=== PATIENT | female | born 1940 | race Caucasian/White ===

== ENCOUNTER 2017-11-29 12:11 | Observation (INO) | payer OTHER ==
--- NOTE | 2017-11-29 13:03 | PDOC ---
History of Present Illness - General Chief Complaint: Injury Stated Complaint: Altered Mental Status Time Seen by Provider: 11/29/17 12:49 - History of Present Illness Initial Comments: 11/29/17 13:06 History elicited from HCP Sister Christina Vilchis. Pt is demented. 77 yo F coming from [facility] w/ H cholecystectomy, R hip surgery (2007), and dementia, p/w altered mental status, polyuria, x1wk along w/ 2 unwitnessed falls. Staff noticed that 1 week ago after pt got flu shot she began having change in MS manifesting w/ polyuria, wetting her bed, unsteady on feet ( baseline is shuffling gait but does not need a cane/walker), stripping her clothing off, mild abd distension. Pt fell twice in the past 4 dys, once last night and once over the weekend. Fall was unwitnessed but pt did not seem to have LOC or any neuro deficits or no obvious bleeding or frax. Pt has not verbalized any specific complaints other than some mild R hip pain. Denies fever, sob, cp, n/v/d, blood in urine, blood in stools, sick contacts. Pt has been maintaining good PO FH: dad had dementia SH: denies smoke etoh drug. Past History - Past Medical History Allergies/Adverse Reactions: Allergies Allergy/AdvReac Type Severity Reaction Status Date / Time No Known Allergies Allergy Verified 11/29/17 15:55 Home Medications: Ambulatory Orders Calcium Carbonate/Vitamin D3 [Calcium 500-Vit D3 200 Tablet] 1 tab PO DAILY 11/08 Docusate Sodium [Colace] 200 mg PO HS 11/29/17 Donepezil HCl [Aricept] 10 mg PO HS 11/29/17 Melatonin 6 mg PO HS 11/29/17 Memantine HCl [Namenda -] 10 mg PO BID 11/29/17 Metoprolol Succinate [Toprol Xl] 25 mg PO DAILY 11/29/17 - Suicide/Smoking/Psychosocial Hx Smoking History: Never smoked Information on smoking cessation initiated: No Hx Alcohol Use: No Drug/Substance Use Hx: No Review of Systems - Review of Systems Constitutional: Yes: See HPI HEENTM: Yes: See HPI Respiratory: Yes: See HPI Cardiac (ROS): Yes: See HPI ABD/GI: Yes: See HPI : Yes: See HPI Musculoskeletal: Yes: See HPI Integumentary: Yes: See HPI Neurological: Yes: See HPI Endocrine: Yes: See HPI Hematologic/Lymphatic: Yes: See HPI *Physical Exam - Vital Signs Last Vital Signs Temp Pulse Resp BP Pulse Ox 99.7 F H 98 H 20 138/80 99 11/29/17 12:33 11/29/17 12:33 11/29/17 12:33 11/29/17 12:33 11/29/17 12:33 - Physical Exam Comments: 11/29/17 13:17 General: Well-nourished, NAD. Dementia HEENT: NCAT, MMM Neck: Supple, no lymphadenopathy Respiratory: CTAB cardio: RRR S1 S2 no m/r/g Abdomen:+ BS Soft, mild distension, TTP suprapubic Extremities: radial 2+ b/l. Warm, dry, no cyanosis, clubbing. no leg edema, swelling or calf tenderness. RLE able to raise leg, mild pain on medial thigh w / flexion of knee joint. LLE unable to flex knee 2/2 pain in the extremity/hip ( unclear location), no erythema, nontender at exterior hip/iliac crest Skin: intact. no rashes Neuro: Alert and oriented x2, nonfocal exam, grossly intact Psych: Normal mood and affect 11/29/17 13:26 ED Treatment Course - LABORATORY CBC & Chemistry Diagram: 11/29/17 14:17 11/29/17 14:17 Medical Decision Making - Medical Decision Making 11/29/17 13:27 History elicited from HCP Sister Chritsina Vilchis. Pt is demented. 77 yo F coming from [facility] w/ PMH cholecystectomy, R hip surgery (2007), and dementia, p/w altered mental status, polyuria, x1wk along w/ 2 unwitnessed falls. tachycardia, rectal temp 99.7, concern for sepsis in setting of AMS and elderly Ddx: sepsis 2/2 UTI, acue vs chronic SDH, hip frax Will initiate sepsis w/u -CBC, CMP, troponin, lactic, UA, Ucx, Bcx, VBG, coags, EKG -CXR -head CT r/o bleed -b/l hip XR look for frax 11/29/17 18:09 no leukocytosis elevated bili and alk phosph CT neg for bleed CXR nl UA neg EKG unremarkable. Hyperkalemia w/o sig EKG changes no obvious hip frax on x-rays Pt may need CT of hip Patient unable to transfer ambulate multiple falls at [facility] unsafe discharge at this time Will admit to inpatient for AMS w/ recurrent falls and unable to ambulate. 11/29/17 19:[address] Nguyen Will admit to inpatient for AMS w/ recurrent falls and unable to ambulate. CAT scan of bilateral hips has been ordered to rule out nondisplaced fracture *DC/Admit/Observation/Transfer Diagnosis at time of Disposition: Encephalopathy, Unable to ambulate Fall Qualifiers: Encounter type: subsequent encounter Qualified Code(s): W19.XXXD - Unspecified fall, subsequent encounter - Referrals - Patient Instructions - Post Discharge Activity
--- NOTE | 2017-11-29 13:32 | PDOC ---
Attending Attestation - HPI HPI: 11/29/17 13:40 The patient is a 77 year old female, with a significant past medical history of cholecystectomy, R hip surgery (2007), and dementia, who presents to the emergency department with sisters at bedside for evaluation of increased confusion over one week with two unwitnessed falls. The sisters at bedside report the patient walks unassisted at baseline, however, after a mechanical fall on Tuesday has been unable to walk steadily unassisted since. The sisters also report a fall last night, but denies LOC. The patient reports mild pain to her left hip and low back, however, is slightly confused. The sisters at bedside states the patient has been removing her clothes periodically in the day and has been wetting her bed frequently within the past week. The patient denies any complaints of pain. The patient denies chest pain, shortness of breath, headache and dizziness. The patient denies fever, chills, nausea, vomit, diarrhea and constipation. The patient denies dysuria, frequency, urgency and hematuria. Allergies: NKDA Past surgical history: right hip (2007) - Physicial Exam PE: 11/29/17 13:40 Vitals: Triage vital signs reviewed General Appearance: No acute distress, well nourished, well developed Head: Atraumatic Eyes: Pupils equal reactive round, extraocular movement intact Neck: Supple; No nuchal rigidity Chest Wall: Nontender Cardiac: Regular rate and rhythm, no murmurs, no rubs, no gallops Lungs: Clear to auscultation bilateral, good air movement bilaterally Abdomen: Soft, nondistended, normal bowel sounds, nontender to palpation Extremities: (+)Decreased ROM of the left lower extremity secondary to pain. + Left hip tenderness on palpation. Left lower extremity is slightly more edematous when compared to the RLE. Full range of motion to remainder of extremities, no cyanosis, clubbing. Musculoskeletal: (+) tenderness on palpation of the lumbar spine. Skin: Warm and dry, no rashes or lesions, no rash, no petechiae Neuro: Cranial Nerves 2-12 grossly intact, Strength intact to all extremities, Sensation intact to all extremities, Psych: Normal mood, normal affect - Medical Decision Making 11/29/17 13:41 Documentation prepared by Johanna Silva, acting as medical pathology teacher for Willis Schilling MD <Johanna Silva - Last Filed: 11/29/17 13:40> - Resident Resident Name: Gagandeep Keyes - ED Attending Attestation I have performed the following: I have examined & evaluated the patient, The case was reviewed & discussed with the resident, I agree w/resident's findings & plan, Exceptions are as noted - Medical Decision Making No acute fracture dislocations on patient's hip x-rays Patient unable to transfer ambulate [facility] unsafe discharge at this time We'll observe on medicine service CAT scan of bilateral hips has been ordered to rule out nondisplaced fracture We'll admit to medicine for further management. <Willis Schilling - Last Filed: 11/29/17 19:00>
[2017-11-29 14:35] LABS: VENOUS PC02 44.5 mmHg (38-52); VENOUS PH 7.41 (7.32-7.42); VENOUS PO2 30.1 mmHg (28-48)
[2017-11-29 14:41] LABS: BASO % 0.9 % (0-2.0); EOS % 1.8 % (0-4.5); HEMATOCRIT 37.5 % (32.4-45.2); HEMOGLOBIN 12.8 GM/dL (10.7-15.3); LYMPH % 13.6 % (8-40); MCH 35.9 pg (25.7-33.7); MEAN CELL VOLUME 105.5 fl (80-96); MONO % 8.9 % (3.8-10.2); NEUT % 74.8 % (42.8-82.8); PLATELET COUNT 273 K/MM3 (134-434); RBC 3.55 M/mm3 (3.60-5.2); RDW 18.9 % (11.6-15.6); WHITE BLOOD COUNT 8.8 K/mm3 (4.0-10.0)
[2017-11-29 15:00] LABS: INR 1.03 (0.83-1.09); PROTHROMBIN TIME (PATIENT) 12.1 SEC (9.7-13.0)
[2017-11-29 15:02] LABS: ALBUMIN 3.3 g/dl (3.4-5.0); ALK PHOS 58 U/L (45-117); ANION GAP 5 MMOL/L (8-16); BILIRUBIN,TOTAL 1.5 mg/dL (0.2-1); BLOOD UREA NITROGEN 21 mg/dL (7-18); CALCIUM 9.2 mg/dL (8.5-10.1); CHLORIDE 111 mmol/L (98-107); CO2 27 mmol/L (21-32); CREATININE 0.6 mg/dL (0.55-1.3); GLUCOSE,RANDOM 87 mg/dL (74-106); POTASSIUM 5.4 mmol/L (3.5-5.1); SGOT/AST 106 U/L (15-37); SGPT/ALT 52 U/L (13-61); SODIUM 143 mmol/L (136-145); TOT PROT 6.8 g/dl (6.4-8.2)
[2017-11-29 15:03] LABS: ACTIVATED PTT 25.3 SECONDS (25.2-36.5)
[2017-11-29] MEDS ORDERED: HALOPERIDOL DECANOATE 100 MG/ML IM ONE (15:32)
[2017-11-29] MEDS ORDERED: HALOPERIDOL LACTATE 5 MG/ML ONE (15:57)
[2017-11-29 16:57] LABS: URINE APPEARANCE CLEAR; URINE BILIRUBIN NEGATIVE (<2.0 mg/dL); URINE COLOR YELLOW; URINE GLUCOSE (UA) NEGATIVE (NEGATIVE); URINE KETONE NEGATIVE (NEGATIVE); URINE LEUK ESTERASE NEGATIVE (NEGATIVE); URINE NITRITE NEGATIVE (NEGATIVE); URINE PROTEIN NEGATIVE (NEGATIVE); URINE UROBILINOGEN NEGATIVE mg/dL (0.2-1.0)
[2017-11-29 17:02] LABS: MACROCYTOSIS 2+
[2017-11-29] MEDS ORDERED: LORazepam 2 MG/ML SDV VIAL ONE (19:17)
[2017-11-29] MEDS: SODIUM CHLORIDE 1,000 ML IV SCH (20:38)
[2017-11-29] MEDS ORDERED: POLYETHYLENE GLYCOL 3350 119 GM BTL PO ONE (21:07)
--- NOTE | 2017-11-29 21:19 | HP ---
CHIEF COMPLAINT: altered mental status PCP: [facility] HISTORY OF PRESENT ILLNESS: This is a 77 year old female with a past medical history of dementia and HTN who presented to the ED from her NH with worsening behavior, decreased ambulation and 2 unwitnessed falls in the past week. Pt with no complaints at time of my exam. Her friend/HCP reports that she has been favoring her left leg and her knee appears to be swollen. Prior to her falls, HCP noted pt gait worsening with increased shuffling. History and ROS limited due to dementia. Information obtained via chart review and from HCP at bedside. ER course was notable for: (1) hip/pelvis xray neg (2) CT head unremarkable (3) WBC 8.8, Lactic Acid WNL, u/a without s/s infection Recent Travel: friend/HCP denies PAST MEDICAL HISTORY: dementia, HTN PAST SURGICAL HISTORY: cholecystectomy L THR Social History: Smoking: HCP denies Alcohol: HCP denies Drugs: HCP denies Family History: father , dementia, violent behavior mother , dementia no siblings, no children Allergies No Known Allergies Allergy (Verified 11/29/17 15:55) HOME MEDICATIONS: 3 Medication Instructions Recorded Acetaminophen 650 mg PO BID 11/29/17 Calcium Carbonate/Vitamin D3 1 tab PO DAILY 11/29/17 [Calcium 500-Vit D3 200 Tablet] Docusate Sodium [Colace] 200 mg PO HS 11/29/17 Donepezil HCl [Aricept] 10 mg PO HS 11/29/17 Melatonin 6 mg PO HS 11/29/17 Memantine HCl [Namenda -] 10 mg PO BID 11/29/17 Metoprolol Succinate [Toprol Xl] 25 mg PO DAILY 11/29/17 REVIEW OF SYSTEMS CONSTITUTIONAL: Absent: fever, chills, diaphoresis, generalized weakness, malaise, loss of appetite, weight change HEENT: Absent: rhinorrhea, nasal congestion, throat pain, throat swelling, difficulty swallowing, mouth swelling, ear pain, eye pain, visual changes CARDIOVASCULAR: Absent: chest pain, syncope, palpitations, irregular heart rate, lightheadedness , peripheral edema RESPIRATORY: Absent: cough, shortness of breath, dyspnea with exertion, orthopnea, wheezing, stridor, hemoptysis GASTROINTESTINAL: last BM yesterday small, large BM on 11/27/17 Absent: abdominal pain, abdominal distension, nausea, vomiting, diarrhea, constipation, melena, hematochezia GENITOURINARY: Absent: dysuria, frequency, urgency, hesitancy, hematuria, flank pain, genital pain MUSCULOSKELETAL: Present: frequent falls Absent: myalgia, arthralgia, joint swelling, back pain, neck pain SKIN: Absent: rash, itching, pallor HEMATOLOGIC/IMMUNOLOGIC: Absent: easy bleeding, easy bruising, lymphadenopathy, frequent infections ENDOCRINE: Absent: unexplained weight gain, unexplained weight loss, heat intolerance, cold intolerance NEUROLOGIC: Present: mental status changes Absent: headache, focal weakness or paresthesias, dizziness, unsteady gait, seizure, bladder or bowel incontinence PSYCHIATRIC: Absent: anxiety, depression, suicidal or homicidal ideation, hallucinations. PHYSICAL EXAMINATION Vital Signs - 24 hr 3 11/29/17 11/29/17 11/29/17 12:20 12:33 15:30 Temperature 99.7 F H 99.7 F H Pulse Rate 98 H Pulse Rate [ 86 Apical] Respiratory 20 20 Rate Blood Pressure 138/80 Blood Pressure 145/78 [Right Arm] O2 Sat by Pulse 99 100 Oximetry (%) 3 11/29/17 20:40 Temperature 98.2 F Pulse Rate Pulse Rate [ 76 Apical] Respiratory 20 Rate Blood Pressure Blood Pressure 130/75 [Right Arm] O2 Sat by Pulse 100 Oximetry (%) GENERAL: Awake, alert, and oriented to person, in no acute distress. follows some simple commands HEAD: Normal with no signs of trauma. EYES: Pupils equal, round and reactive to light, extraocular movements intact, sclera anicteric, conjunctiva clear. No lid lag. EARS, NOSE, THROAT: Ears normal, nares patent, oropharynx clear without exudates. Moist mucous membranes. NECK: Normal range of motion, supple without lymphadenopathy, JVD, or masses. LUNGS: Breath sounds equal, clear to auscultation bilaterally. No wheezes, and no crackles. No accessory muscle use. HEART: Regular rate and rhythm, normal S1 and S2 without murmur, rub or gallop. ABDOMEN: Soft, nontender, not distended, normoactive bowel sounds, no guarding, no rebound, no masses. No hepatomegaly or splenomegaly. MUSCULOSKELETAL: Normal range of motion at all joints except left knee. No bony deformities or tenderness. No CVA tenderness. Left knee noted with edema, Pt refusing ROM of knee, possibly due to pain UPPER EXTREMITIES: 2+ pulses, warm, well-perfused. No cyanosis. No clubbing. No peripheral edema. LOWER EXTREMITIES: 2+ pulses, warm, well-perfused. No calf tenderness. No peripheral edema. NEUROLOGICAL: Cranial nerves II-XII intact. Normal speech. PSYCHIATRIC: Cooperative. Good eye contact. Appropriate mood and affect. SKIN: Warm, dry, normal turgor, no rashes or lesions noted, normal capillary refill. Laboratory Results - last 24 hr 3 11/29/17 11/29/17 11/29/17 12:54 14:17 14:17 WBC 8.8 RBC 3.55 L Hgb 12.8 Hct 37.5 MCV 105.5 H MCH 35.9 H MCHC 34.0 RDW 18.9 H Plt Count 273 MPV 9.0 Absolute Neuts (auto) 6.6 Neutrophils % 74.8 Lymphocytes % 13.6 Monocytes % 8.9 Eosinophils % 1.8 Basophils % 0.9 Nucleated RBC % 0 Macrocytosis 2+ PT with INR 12.10 INR 1.03 PTT (Actin FS) 25.3 VBG pH POC VBG pCO2 POC VBG pO2 Mixed VBG HCO3 Sodium Potassium Chloride Carbon Dioxide Anion Gap BUN Creatinine Creat Clearance w eGFR Random Glucose Lactic Acid Calcium Total Bilirubin AST ALT Alkaline Phosphatase Troponin I < 0.02 Total Protein Albumin Urine Color Urine Appearance Urine pH Ur Specific [place] Urine Protein Urine Glucose (UA) Urine Ketones Urine Blood Urine Nitrite Urine Bilirubin Urine Urobilinogen Ur Leukocyte Esterase 3 11/29/17 11/29/17 11/29/17 11/29/17 14:17 14:17 14:17 20:00 WBC RBC Hgb Hct MCV MCH MCHC RDW Plt Count MPV Absolute Neuts (auto) Neutrophils % Lymphocytes % Monocytes % Eosinophils % Basophils % Nucleated RBC % Macrocytosis PT with INR INR PTT (Actin FS) VBG pH 7.41 POC VBG pCO2 44.5 POC VBG pO2 30.1 Mixed VBG HCO3 27.9 H Sodium 143 Potassium 5.4 H Chloride 111 H Carbon Dioxide 27 Anion Gap 5 L BUN 21 H Creatinine 0.6 Creat Clearance w eGFR > 60 Random Glucose 87 Lactic Acid 0.7 1.0 Calcium 9.2 Total Bilirubin 1.5 H AST 106 H ALT 52 Alkaline Phosphatase 58 Troponin I Total Protein 6.8 Albumin 3.3 L Urine Color Urine Appearance Urine pH Ur Specific [place] Urine Protein Urine Glucose (UA) Urine Ketones Urine Blood Urine Nitrite Urine Bilirubin Urine Urobilinogen Ur Leukocyte Esterase 3 Urine Color Yellow 11/29/17 16: Urine Appearance Clear 11/29/17 16:19 Urine pH 5.0 (5.0-8.0) 11/29/17 16:19 Ur Specific [place] 1.021 (1.010-1.035) 11/29/17 16:19 Urine Protein Negative (NEGATIVE) 11/29/17 16:19 Urine Glucose (UA) Negative (NEGATIVE) 11/29/17 16:19 Urine Ketones Negative (NEGATIVE) 11/29/17 16: Urine Blood Negative (NEGATIVE) 11/29/17 16: Urine Nitrite Negative (NEGATIVE) 11/29/17 16: Urine Bilirubin Negative (<2.0 mg/dL) 11/29/17 16:19 Ur Leukocyte Esterase Negative (NEGATIVE) 11/29/17 16:19 ECG normal sinus rhythm vent rate 96, QTC 464 low voltage QRCS No acute ST/T wave changes Radiology Reports CT pelvis without contrast Impression: No CT evidence of fracture as discussed above. Reported By: Prashant Bronson MD 11/29/17 2054 CXR portable Impression: No acute chest pathology. Reported By: Wade Pruitt MD 11/29/[address] head without contrast Impression: Moderate atrophy. Moderate ventricular dilatation with the lateral and third ventricles relatively more dilated than the fourth. Although this may be due to central atrophy, cannot rule out aqueduct of Sylvius narrowing/stenosis. Correlate clinically. [id number] periventricular chronic microvascular ischemic disease changes are present. No gross acute infarct or intracranial hemorrhage are identified. Reported By: Nasima Giang MD 11/29/17 1501 ASSESSMENT/PLAN: 77yF with PMH dementia, HTN presented to the ED from her NH with altered mental status and falls. Altered mental status - ?worsening dementia - unclear etiology - supportive care frequent falls - PT consult after knee xray - may be difficult to rehab due to dementia - pt has resisted use of walker/cane in past due to memory issues knee pain - xray - tylenol for pain hypovolemia - elevated BUN, likely poor po liquid intake as per HCP - NS @100cc/hr, reassess in am constipation - HCP notes that abdomen appears more protuberant than usual, stool noted on pelvis CT and xray - Last good BM 2 days ago as per [facility] staff - will start miralax HTN - cont home toprol DVT PPX - heparin SC FEN - NS @ 100cc/hr - BMP in am - low sodium diet as tolerated Dispo: pt currently requires further inpatient management of her emergent condition Visit type - Emergency Visit Emergency Visit: Yes ED Registration Date: 11/29/17 Care time: The patient presented to the Emergency Department on the above date and was hospitalized for further evaluation of their emergent condition. - New Patient This patient is new to me today: Yes Date on this admission: 11/29/17 - Critical Care Critical Care patient: No
[2017-11-29] MEDS ORDERED: PATIENT'S OWN MEDICATION (NON-FORMULARY) (Melatonin [Melatonin] 6 MG) PO SCH (22:00)
[2017-11-29] MEDS: MELATONIN 5 MG, MELATONIN 1 MG PO SCH (22:56)
[2017-11-29] MEDS: DOCUSATE SODIUM 100 MG CAPSULE (FP) PO SCH (22:56)
[2017-11-29] MEDS: DONEPEZIL HCL 10 MG TABLET (FP) PO SCH (22:56)
[2017-11-29] MEDS: MEMANTINE HCL 10 MG TABLET (FP) PO SCH (22:57)
[2017-11-29] MEDS: ACETAMINOPHEN 325 MG TABLET (FP) PO SCH (22:58)
[2017-11-29] MEDS: HEPARIN NA (PORCINE) 5,000 UNITS/ML 1ML VIAL SQ SCH (22:58)
[2017-11-29] MEDS ORDERED: HEPARIN NA (PORCINE) 5,000 UNITS/ML 1ML VIAL ONE (23:04)
[2017-11-29] MEDS ORDERED: LORazepam 2 MG/ML SDV VIAL IVPUSH PRN (23:43)
[2017-11-30] MEDS: SODIUM CHLORIDE 1,000 ML IV SCH (04:37)
[2017-11-30] MEDS: HEPARIN NA (PORCINE) 5,000 UNITS/ML 1ML VIAL SQ SCH ×2 (06:03→23:35)
[2017-11-30 07:50] VITALS: BMI 18.4
[2017-11-30] MEDS: MEMANTINE HCL 10 MG TABLET (FP) PO SCH ×2 (09:48→23:34)
[2017-11-30] MEDS: metoPROLOL SUCCINATE 25 MG TAB.SR.24H (FP) PO SCH (09:48)
[2017-11-30] MEDS: CALCIUM 500MG/VIT-D 200 UNITS COMBO TABLET (FP) PO SCH (09:48)
[2017-11-30] MEDS: ACETAMINOPHEN 325 MG TABLET (FP) PO SCH ×2 (09:48→23:33)
[2017-11-30] MEDS: POLYETHYLENE GLYCOL 3350 119 GM BTL PO SCH (09:48)
--- NOTE | 2017-11-30 09:53 | EKG ---
Test Reason : Blood Pressure : / mmHG Vent. Rate : 095 BPM Atrial Rate : 095 BPM P-R Int : 176 ms QRS Dur : 070 ms QT Int : 370 ms P-R-T Axes : 044 -23 037 degrees QTc Int : 464 ms NORMAL SINUS RHYTHM LOW VOLTAGE QRS CANNOT RULE OUT ANTERIOR INFARCT , AGE UNDETERMINED ABNORMAL ECG NO PREVIOUS ECGS AVAILABLE Confirmed by MARLI KENT MD ([id number]) on 11/30/2017 9:53:22 AM Referred By: Confirmed By:MARLI KENT MD
[2017-11-30 10:34] LABS: BASO % 1.1 % (0-2.0); EOS % 0.5 % (0-4.5); HEMATOCRIT 39.2 % (32.4-45.2); HEMOGLOBIN 12.9 GM/dL (10.7-15.3); LYMPH % 9.7 % (8-40); MCH 34.8 pg (25.7-33.7); MCHC 32.8 g/dl (32.0-36.0); MEAN PLT VOLUME 7.9 fl (7.5-11.1); MONO % 6.3 % (3.8-10.2); NEUT % 82.4 % (42.8-82.8); PLATELET COUNT 243 K/MM3 (134-434); RDW 18.5 % (11.6-15.6); WHITE BLOOD COUNT 8.8 K/mm3 (4.0-10.0)
--- NOTE | 2017-11-30 10:55 | PN ---
Progress Note (short form) - Note Progress Note: gets agitated at times and is trying to get OOB Vital Signs - 24 hr 11/29/17 11/29/17 11/29/17 12:20 12:33 15:30 Temperature 99.7 F H 99.7 F H Pulse Rate 98 H Pulse Rate [ 86 Apical] Respiratory 20 20 Rate Blood Pressure 138/80 Blood Pressure 145/78 [Right Arm] O2 Sat by Pulse 99 100 Oximetry (%) 11/29/17 11/29/17 11/30/17 18:05 20:40 01:36 Temperature 98.4 F 98.2 F Pulse Rate 87 Pulse Rate [ 76 75 Apical] Respiratory 20 20 18 Rate Blood Pressure 145/73 Blood Pressure 130/75 132/77 [Right Arm] O2 Sat by Pulse 100 100 Oximetry (%) 11/30/17 11/30/17 03:00 06:00 Temperature 99.6 F Pulse Rate 64 Pulse Rate [ Apical] Respiratory 20 Rate Blood Pressure 143/73 Blood Pressure [Right Arm] O2 Sat by Pulse 98 Oximetry (%) Current Medications Generic Name Dose Route Start Last Admin Trade Name Freq PRN Reason Stop Dose Admin Acetaminophen 650 mg 11/29/17 22:00 11/30/17 09:48 Tylenol - PO 650 mg BID ELSIE Administration Calcium Carbonate/Cholecalciferol 1 tab 11/30/17 10:00 11/30/17 09:48 Os-Gokul 500+D - PO 1 tab DAILY ELSIE Administration Docusate Sodium 200 mg 11/29/17 22:00 11/29/17 22:56 Colace - PO 200 mg HS ELSIE Administration Donepezil HCl 10 mg 11/29/17 22:00 11/29/17 22:56 Aricept - PO 10 mg HS ELSIE Administration Heparin Sodium (Porcine) 5,000 unit 11/30/17 22:00 Heparin - SQ BID ELSIE Lorazepam 0.5 mg 11/29/17 23:43 Ativan Injection - IVPUSH BID PRN ANXIETY Melatonin 5 mg/ Melatonin 1 mg 6 mg 11/29/17 22:00 11/29/17 22:56 PO 6 mg HS ELSIE Administration Memantine 10 mg 11/29/17 22:00 11/30/17 09:48 Namenda - PO 10 mg BID ELSIE Administration Metoprolol Succinate 25 mg 11/30/17 10:00 11/30/17 09:48 Toprol Xl - PO 25 mg DAILY ELSIE Administration Polyethylene Glycol 17 gm 11/30/17 10:00 11/30/17 09:48 Miralax (For Daily Use) - PO 17 grams DAILY ELSIE Administration Laboratory Results - last 24 hr 11/29/17 11/29/17 11/29/17 12:54 14:17 14:17 WBC 8.8 RBC 3.55 L Hgb 12.8 Hct 37.5 MCV 105.5 H MCH 35.9 H MCHC 34.0 RDW 18.9 H Plt Count 273 MPV 9.0 Absolute Neuts (auto) 6.6 Neutrophils % 74.8 Lymphocytes % 13.6 Monocytes % 8.9 Eosinophils % 1.8 Basophils % 0.9 Nucleated RBC % 0 Macrocytosis 2+ PT with INR 12.10 INR 1.03 PTT (Actin FS) 25.3 VBG pH POC VBG pCO2 POC VBG pO2 Mixed VBG HCO3 Sodium Potassium Chloride Carbon Dioxide Anion Gap BUN Creatinine Creat Clearance w eGFR Random Glucose Lactic Acid Calcium Total Bilirubin AST ALT Alkaline Phosphatase Troponin I < 0.02 Total Protein Albumin Urine Color Urine Appearance Urine pH Ur Specific [place] Urine Protein Urine Glucose (UA) Urine Ketones Urine Blood Urine Nitrite Urine Bilirubin Urine Urobilinogen Ur Leukocyte Esterase 11/29/17 11/29/17 11/29/17 14:17 14:17 14:17 WBC RBC Hgb Hct MCV MCH MCHC RDW Plt Count MPV Absolute Neuts (auto) Neutrophils % Lymphocytes % Monocytes % Eosinophils % Basophils % Nucleated RBC % Macrocytosis PT with INR INR PTT (Actin FS) VBG pH 7.41 POC VBG pCO2 44.5 POC VBG pO2 30.1 Mixed VBG HCO3 27.9 H Sodium 143 Potassium 5.4 H Chloride 111 H Carbon Dioxide 27 Anion Gap 5 L BUN 21 H Creatinine 0.6 Creat Clearance w eGFR > 60 Random Glucose 87 Lactic Acid 0.7 Calcium 9.2 Total Bilirubin 1.5 H AST 106 H ALT 52 Alkaline Phosphatase 58 Troponin I Total Protein 6.8 Albumin 3.3 L Urine Color Urine Appearance Urine pH Ur Specific [place] Urine Protein Urine Glucose (UA) Urine Ketones Urine Blood Urine Nitrite Urine Bilirubin Urine Urobilinogen Ur Leukocyte Esterase 11/29/17 11/29/17 11/30/17 16:19 20:00 10:18 WBC 8.8 RBC 3.70 Hgb 12.9 Hct 39.2 MCV 106.0 H MCH 34.8 H MCHC 32.8 RDW 18.5 H Plt Count 243 MPV 7.9 D Absolute Neuts (auto) 7.3 Neutrophils % 82.4 Lymphocytes % 9.7 D Monocytes % 6.3 Eosinophils % 0.5 Basophils % 1.1 Nucleated RBC % 0 Macrocytosis PT with INR INR PTT (Actin FS) VBG pH POC VBG pCO2 POC VBG pO2 Mixed VBG HCO3 Sodium Potassium Chloride Carbon Dioxide Anion Gap BUN Creatinine Creat Clearance w eGFR Random Glucose Lactic Acid 1.0 Calcium Total Bilirubin AST ALT Alkaline Phosphatase Troponin I Total Protein Albumin Urine Color Yellow Urine Appearance Clear Urine pH 5.0 Ur Specific [place] 1.021 Urine Protein Negative Urine Glucose (UA) Negative Urine Ketones Negative Urine Blood Negative Urine Nitrite Negative Urine Bilirubin Negative Urine Urobilinogen Negative Ur Leukocyte Esterase Negative S1 S2 RRR Lungs clear Abd- soft, NT No edema Moves all extremities A/P AMS Dementia -- CT head, pelvis CT - negative -- labs noted -- no infectious etiology -- dc plan to [place] -- blood cultures -- CXR normal -- likely worsening dementia -- pt is DNR/DNI and DNH
[2017-11-30] MEDS ORDERED: LORazepam 2 MG/ML SDV VIAL IM PRN ×2 (11:19→18:37)
[2017-11-30 11:50] LABS: ANION GAP 5 MMOL/L (8-16); BLOOD UREA NITROGEN 13 mg/dL (7-18); CALCIUM 8.9 mg/dL (8.5-10.1); CHLORIDE 110 mmol/L (98-107); CO2 27 mmol/L (21-32); CREATININE 0.6 mg/dL (0.55-1.3); GLUCOSE,RANDOM 93 mg/dL (74-106); PHOSPHOROUS 2.6 mg/dL (2.5-4.9); POTASSIUM 3.5 mmol/L (3.5-5.1); SODIUM 143 mmol/L (136-145)
--- NOTE | 2017-11-30 18:37 | DS ---
Physical Examination Vital Signs: Vital Signs Temperature 98.2 F 11/30/17 15:21 Pulse Rate 99 H 11/30/17 15:21 Respiratory Rate 20 11/30/17 15:21 Blood Pressure 135/69 11/30/17 15:21 O2 Sat by Pulse Oximetry (%) 96 11/30/17 12:58 Labs: CBC, BMP 11/30/17 10:18 11/30/17 10:18 Discharge Summary Reason For Visit: RECURRENT FALLS/UNABLE TO WALK Current Active Problems Encephalopathy (Acute) Fall (Acute) Unable to ambulate (Acute) Hospital Course: see progress note Condition: Improved - Instructions Referrals: Lewis Puri [Primary Care Provider] - Disposition: [facility] FACILITY - Home Medications Comprehensive Discharge Medication List: Ambulatory Orders Acetaminophen 650 mg PO BID 11/29/17 Calcium Carbonate/Vitamin D3 [Calcium 500-Vit D3 200 Tablet] 1 tab PO DAILY 11/08 Docusate Sodium [Colace] 200 mg PO HS 11/29/17 Donepezil HCl [Aricept] 10 mg PO HS 11/29/17 Melatonin 6 mg PO HS 11/29/17 Memantine HCl [Namenda -] 10 mg PO BID 11/29/17 Metoprolol Succinate [Toprol Xl] 25 mg PO DAILY 11/29/17
[2017-11-30] MEDS: DONEPEZIL HCL 10 MG TABLET (FP) PO SCH (23:33)
[2017-11-30] MEDS: DOCUSATE SODIUM 100 MG CAPSULE (FP) PO SCH (23:34)
[2017-11-30] MEDS: MELATONIN 5 MG, MELATONIN 1 MG PO SCH (23:36)
[2017-12-01 05:20] VITALS: BP 147/97; PULSE 99; TEMP 98.2
--- NOTE | 2017-12-01 10:21 | PN ---
Progress Note (short form) - Note Progress Note: gets agitated at times and is trying to get OOB anxious wants to go to [place] Vital Signs - 24 hr 11/30/17 11/30/17 11/30/17 12:58 15:21 18:00 Temperature 98.2 F 0 F L Pulse Rate 99 H 0 L Respiratory 20 20 0 L Rate Blood Pressure 135/69 0/0 L O2 Sat by Pulse 96 Oximetry (%) 11/30/17 11/30/17 11/30/17 19:16 20:58 22:00 Temperature 98.3 F 98.3 F Pulse Rate 100 H 92 H Respiratory 20 20 20 Rate Blood Pressure 156/80 128/60 O2 Sat by Pulse 96 Oximetry (%) 12/01/17 12/01/17 12/01/17 01:57 04:00 05:18 Temperature 97.5 F L 98.2 F Pulse Rate 84 99 H Respiratory 20 20 20 Rate Blood Pressure 131/60 147/97 O2 Sat by Pulse 96 Oximetry (%) Current Medications Generic Name Dose Route Start Last Admin Trade Name Freq PRN Reason Stop Dose Admin Acetaminophen 650 mg 11/29/17 22:00 11/30/17 23:33 Tylenol - PO 650 mg BID ELSIE Administration Calcium Carbonate/Cholecalciferol 1 tab 11/30/17 10:00 11/30/17 09:48 Os-Gokul 500+D - PO 1 tab DAILY ELSIE Administration Docusate Sodium 200 mg 11/29/17 22:00 11/30/17 23:34 Colace - PO 200 mg HS ELSIE Administration Donepezil HCl 10 mg 11/29/17 22:00 11/30/17 23:33 Aricept - PO 10 mg HS ELSIE Administration Heparin Sodium (Porcine) 5,000 unit 11/30/17 22:00 11/30/17 23:35 Heparin - SQ 5,000 unit BID ELSIE Administration Lorazepam 1 mg 11/30/17 18:37 Ativan Injection - IM Q4H PRN ANXIETY Melatonin 5 mg/ Melatonin 1 mg 6 mg 11/29/17 22:00 11/30/17 23:36 PO 6 mg HS ELSIE Administration Memantine 10 mg 11/29/17 22:00 11/30/17 23:34 Namenda - PO 10 mg BID ELSIE Administration Metoprolol Succinate 25 mg 12/01/17 10:32 Toprol Xl - PO 12/01/17 10:33 ONCE ONE Metoprolol Succinate 50 mg 12/02/17 10:00 Toprol Xl - PO DAILY [facility] Polyethylene Glycol 17 gm 11/30/17 10:00 11/30/17 09:48 Miralax (For Daily Use) - PO 17 grams DAILY ELSIE Administration Laboratory Results - last 24 hr 11/30/17 11/30/17 11/30/17 10:18 10:18 11:00 WBC 8.8 RBC 3.70 Hgb 12.9 Hct 39.2 MCV 106.0 H MCH 34.8 H MCHC 32.8 RDW 18.5 H Plt Count 243 MPV 7.9 D Absolute Neuts (auto) 7.3 Neutrophils % 82.4 Lymphocytes % 9.7 D Monocytes % 6.3 Eosinophils % 0.5 Basophils % 1.1 Nucleated RBC % 0 Sodium 143 Potassium 3.5 Chloride 110 H Carbon Dioxide 27 Anion Gap 5 L BUN 13 Creatinine 0.6 Creat Clearance w eGFR > 60 Random Glucose 93 Calcium 8.9 Phosphorus 2.6 Magnesium 2.0 Vitamin B12 623 TSH 1.32 RPR Titer Nonreactive S1 S2 RRR Lungs clear Abd- soft, NT No edema Moves all extremities A/P AMS Dementia -- CT head, pelvis CT - negative -- labs noted -- no infectious etiology -- dc plan to [place] today -- increase Toprol top 50mg daily -- blood cultures negative -- CXR normal -- likely worsening dementia -- pt is DNR/DNI and DNH
[2017-12-01] MEDS ORDERED: metoPROLOL SUCCINATE 25 MG TAB.SR.24H (FP) PO ONE (11:00)
[2017-12-01] MEDS: HEPARIN NA (PORCINE) 5,000 UNITS/ML 1ML VIAL SQ SCH (11:35)
[2017-12-01] MEDS: MEMANTINE HCL 10 MG TABLET (FP) PO SCH (11:36)
[2017-12-01] MEDS: CALCIUM 500MG/VIT-D 200 UNITS COMBO TABLET (FP) PO SCH (11:36)
[2017-12-01] MEDS: POLYETHYLENE GLYCOL 3350 119 GM BTL PO SCH (11:36)
[2017-12-01] MEDS: ACETAMINOPHEN 325 MG TABLET (FP) PO SCH (11:39)
[2017-12-01] MEDS: metoPROLOL SUCCINATE 25 MG TAB.SR.24H (FP) PO SCH (11:45)
== END 2017-12-01 13:44 ==
LOC: JER 12:11 → JERBED 18:05 → UNDOADMOB 18:05 → INTOOBSV 18:05 → J7W 11-30 02:42 → JERBED 11-30 02:42 → J7W 11-30 12:58
PROVIDERS: ADMIT Internal Medicine; ATTEND Internal Medicine
PROC: 3E033GC Introduction of Other Therapeutic Substance into Peripheral Vein, Percutaneous Approach (ICD-10-PCS; principal; 2017-11-30)
PROC: 3E0337Z Introduction of Electrolytic and Water Balance Substance into Peripheral Vein, Percutaneous Approach (ICD-10-PCS; 2017-11-30)
PROC: 3E023GC Introduction of Other Therapeutic Substance into Muscle, Percutaneous Approach (ICD-10-PCS; 2017-11-30)
PROC: 3E013GC Introduction of Other Therapeutic Substance into Subcutaneous Tissue, Percutaneous Approach (ICD-10-PCS; 2017-11-30)
DX: G93.40 Encephalopathy, unspecified (principal); R26.2 Difficulty in walking, not elsewhere classified; F03.90 Unspecified dementia, unspecified severity, without behavioral disturbance, psychotic disturbance, mood disturbance, and anxiety; R41.82 Altered mental status, unspecified; R29.6 Repeated falls; E86.1 Hypovolemia; K59.00 Constipation, unspecified; I10 Essential (primary) hypertension; W18.30XA Fall on same level, unspecified, initial encounter; Z91.81 History of falling; Y93.9 Activity, unspecified; Y92.129 Unspecified place in nursing home as the place of occurrence of the external cause
CPT/HCPCS: 36415; 70450-TC; 71045-TC-FY; 72192-TC; 73523-TC-FY; 73562-TC-LT-FY; 80048; 80053; 81003; 82607; 82803; 83605; 83735; 84100; 84443; 84484; 85025; 85610; 85730; 86593; 87040; 87086; 93005; 93010; 96372; 96374; 99284-25; G0378; J1644; J7030